=== PATIENT | male | born 1985 | race Caucasian/White ===

== ENCOUNTER 2020-05-31 08:36 | Emergency (ER) | payer OTHER, SELFPAY ==
[2020-05-31 08:45] VITALS: BP 164/87; PULSE 88; RESP 17; TEMP 37.2; O2SAT 94; BMI 30.7
--- NOTE | 2020-05-31 08:45 | ECG_ITS ---
Test Reason : SOB Blood Pressure : / mmHG Vent. Rate : 082 BPM Atrial Rate : 082 BPM P-R Int : 140 ms QRS Dur : 110 ms QT Int : 344 ms P-R-T Axes : 040 033 045 degrees QTc Int : 401 ms Normal sinus rhythm with sinus arrhythmia Incomplete right bundle branch block Borderline ECG When compared with ECG of 31-DEC-2007 05:34, No significant change was found Referred By: Veronica Sanders Electronically Signed By:EDMUND JAY MD
--- NOTE | 2020-05-31 08:45 | XR_ITS ---
EXAMINATION: XR CHEST CLINICAL INFORMATION: Fever, shortness of breath COMPARISON: Report chest radiograph 12/31/2007 TECHNIQUE: Portable upright AP view of the chest was obtained. FINDINGS: The lungs are clear. The vascularity is normal. There is no airspace consolidation or definite groundglass opacity. The costophrenic sulci are clear. The heart is normal in size. The hilar and mediastinal contours are normal. No visible acute bony abnormality. IMPRESSION: Unremarkable examination.
[2020-05-31 08:47] VITALS: PULSE 84
--- NOTE | 2020-05-31 08:47 | ED.CHESTPAIN ---
HPI - Chest Pain General Chief Complaint: Chest Pain Stated Complaint: SOB CHEST PAIN Time Seen by Provider: 05/31/20 08:39 Source: patient Mode of arrival: ambulatory Limitations: no limitations History of Present Illness HPI narrative: patient comes to the emergency room complaining of chest pain with coughing, subjective fever, chills, and diaphoresis. Patient states that all his symptoms started 2 days ago. Patient took ibuprofen last night. Patient states that this time he does not have significant shortness of breath, no chest pain. Patient concerned about the sweating episodes that he has had over last 48 hours. Patient denies known exposure to COVID-19. At home no one is sick except him Related Data Allergies Allergy/AdvReac Type Severity Reaction Status Date / Time No Known Allergies Allergy Unknown Unverified 04/26/20 16:05 [No Known Allergies*] Review of Systems Review of Systems: Constitutional : No Weight loss, complaining of fever and chills and episodes of sweating throughout the day for the last 48 hours, also complaining of fatigue and malaise ENT/Mouth : No Hearing loss, No Ear Pain, No Nasal Congestion, No Sinus Pain, No Hoarseness, No sore throat, No Rhinorrhea, No Swallowing Difficulty Eyes: No Eye Pain, No Swelling, No Redness, No Foreign Body, No Discharge, No Vision Changes Cardiovascular : mild chest pain with coughing, feels short of breath, No Orthopnea, No Edema, No Palpitations Respiratory : reports dry cough, No Wheezing, No Smoke Exposure Gastrointestinal : No Nausea, No Vomiting, reports couple of episodes of Diarrhea, No Constipation, No abdominal Pain, No Hematochezia, No Melena Genitourinary : no irregular bleeding, No Dysuria, No Urinary Frequency, No Hematuria, No Urinary Incontinence, No Urgency, No Flank Pain, No Urinary Flow Changes, No Hesitancy Musculoskeletal : No joint pain, No Myalgias, No Joint Swelling Skin : No Skin Lesions, No rash Neuro : No Weakness, No Numbness, No Paresthesias, No Loss of Consciousness, No Dizziness, No Headache Psych : No Anxiety/Panic, No Depression, No SI/HI/AH/VH, No Social Issues, Heme/Lymph: No Bruising, No Bleeding,No Lymphadenopathy Endocrine : No Polyuria, No Polydipsia, No Temperature Intolerance Yes all other systems are reviewed and are negative [facility] Social History Social History Alcohol intake: never Smoking Status: Never smoker Use of substances other than those prescribed or required for medical reasons: No Advance Directives: No Advance Directives Information Provided: No Physical Exam Vital Signs: Vital Signs: Vital Signs Temp Pulse Resp BP Pulse Ox 05/31/20 12:00 76 16 96 05/31/20 10:00 74 05/31/20 08:45 99 F 88 17 164/87 H 94 Body Mass Index 30.7 Appearance: Alert. Oriented X3. No acute distress, diaphoretic Eyes: Pupils equal, round and reactive to light. ENT: Pharynx normal. Neck: Normal inspection. Neck supple. No lymph nodes noted. No crepitus CVS: Normal heart rate and rhythm. Pulses normal. Normal S1 and S2 Respiratory: No respiratory distress. Breath sounds normal. No Wheezing. No rales Abdomen: Soft and nontender. No rigidity. No distention. good BS x4 Skin: Skin warm and dry. Normal skin color. Normal skin turgor. Extremities: No lower extremity edema. No lower extremity edema. No Lacerations. No Rash Neuro: Oriented X 3. No motor deficit. No sensory deficit. Moving all extermities. No slurred speech. Course Course Course Narrative: patient is asymptomatic. I discussed the labs with the patient, patient now accepts that she used cocaine. I discussed with the patient That all his symptoms can be related to cocaine use, and urged him to stop using drugs. MDM - Chest Pain Lab Data Result diagrams: 05/31/20 08:57 05/31/20 08:57 Labs: Lab Results 05/31/20 05/31/20 05/31/20 Range/Units 08:56 08:56 08:57 WBC 10.5 (4.8-10.8) X10*3/uL RBC 5.36 (4.60-5.80) X10*6/uL Hgb 16.5 (14.0-18.0) g/dl Hct 47.1 (42-52) % MCV 87.9 (80-98) fL MCH 30.8 (27.0-33.0) pg MCHC 35.0 (31.0-36.0) g/dl RDW 11.7 (11.0-16.0) % Plt Count 214 (160-400) X10*3/uL MPV 11.3 (9.4-12.4) fL Immature Gran % (Auto) 0.2 (0.0-0.4) % Neut % (Auto) 70.6 (45-73) % Lymph % (Auto) 13.6 L (20-40) % [place] % (Auto) 10.6 (2-11) % Eos % (Auto) 4.2 H (0-4) % Baso % (Auto) 0.8 (0-2) % Lymph # (Auto) 1.4 (1.2-4.9) X10*3/uL [place] # (Auto) 1.1 (0.1-1.2) X10*3/uL Eos # (Auto) 0.4 (0.0-0.4) X10*3/uL Baso # (Auto) 0.1 (0.0-0.2) X10*3/uL Abs Immat Gran (auto) 0.02 (0.00-0.03) X10*3/uL Absolute Neuts (auto) 7.4 (2.0-8.3) X10*3/uL Absolute Nucleated RBC 0.000 (0.0-0.012) X10*3/uL Nucleated RBC % (auto) 0.0 (0.0-0.2) /100WBC D-Dimer NG/ML Sodium (135-145) mmol/L Potassium (3.3-5.1) mmol/l Chloride (96-108) mmol/L Carbon Dioxide (22-29) mmol/L Anion Gap (12-20) BUN (9-16) mg/dL Creatinine (0.5-1.4) mg/dL Estim Creat Clear Calc Estimated GFR Random Glucose (60-115) mg/dL Calcium (8.4-10.2) mg/dL Troponin I High Sens < 3.5 (<3.5-35.0) ng/L Urine Color Urine Appearance Urine pH (5.0-8.0) Ur Specific [place] (1.005-1.025) Urine Protein (NEG-TRACE) MG/DL Urine Glucose (UA) (NEG) MG/DL Urine Ketones (NEG) MG/DL Urine Blood (NEG) Urine Nitrite (NEG) Ur Leukocyte Esterase (NEG) Urine Opiates Screen (Not Detect) Ur Barbiturates Screen (Not Detect) Ur Phencyclidine Scrn (Not Detect) Ur Amphetamines Screen (Not Detect) U Benzodiazepines Scrn (Not Detect) Urine Cocaine Screen (Not Detect) U Marijuana (THC) Screen (Not Detect) Coronavirus (PCR) NEGATIVE (Negative) 05/31/20 05/31/20 05/31/20 Range/Units 08:57 10:01 11:45 WBC (4.8-10.8) X10*3/uL RBC (4.60-5.80) X10*6/uL Hgb (14.0-18.0) g/dl Hct (42-52) % MCV (80-98) fL MCH (27.0-33.0) pg MCHC (31.0-36.0) g/dl RDW (11.0-16.0) % Plt Count (160-400) X10*3/uL MPV (9.4-12.4) fL Immature Gran % (Auto) (0.0-0.4) % Neut % (Auto) (45-73) % Lymph % (Auto) (20-40) % [place] % (Auto) (2-11) % Eos % (Auto) (0-4) % Baso % (Auto) (0-2) % Lymph # (Auto) (1.2-4.9) X10*3/uL [place] # (Auto) (0.1-1.2) X10*3/uL Eos # (Auto) (0.0-0.4) X10*3/uL Baso # (Auto) (0.0-0.2) X10*3/uL Abs Immat Gran (auto) (0.00-0.03) X10*3/uL Absolute Neuts (auto) (2.0-8.3) X10*3/uL Absolute Nucleated RBC (0.0-0.012) X10*3/uL Nucleated RBC % (auto) (0.0-0.2) /100WBC D-Dimer 223 NG/ML Sodium 140 (135-145) mmol/L Potassium 4.1 (3.3-5.1) mmol/l Chloride 101 (96-108) mmol/L Carbon Dioxide 28 (22-29) mmol/L Anion Gap 15 (12-20) BUN 9 (9-16) mg/dL Creatinine 1.10 (0.5-1.4) mg/dL Estim Creat Clear Calc 113.8 Estimated GFR > 60 Random Glucose 109 (60-115) mg/dL Calcium 9.5 (8.4-10.2) mg/dL Troponin I High Sens (<3.5-35.0) ng/L Urine Color YELLOW Urine Appearance CLEAR Urine pH 6.0 (5.0-8.0) Ur Specific [place] 1.020 (1.005-1.025) Urine Protein TRACE (NEG-TRACE) MG/DL Urine Glucose (UA) NEG (NEG) MG/DL Urine Ketones NEG (NEG) MG/DL Urine Blood NEG (NEG) Urine Nitrite NEG (NEG) Ur Leukocyte Esterase TRACE H (NEG) Urine Opiates Screen (Not Detect) Ur Barbiturates Screen (Not Detect) Ur Phencyclidine Scrn (Not Detect) Ur Amphetamines Screen (Not Detect) U Benzodiazepines Scrn (Not Detect) Urine Cocaine Screen (Not Detect) U Marijuana (THC) Screen (Not Detect) Coronavirus (PCR) (Negative) 05/31/20 Range/Units 11:45 WBC (4.8-10.8) X10*3/uL RBC (4.60-5.80) X10*6/uL Hgb (14.0-18.0) g/dl Hct (42-52) % MCV (80-98) fL MCH (27.0-33.0) pg MCHC (31.0-36.0) g/dl RDW (11.0-16.0) % Plt Count (160-400) X10*3/uL MPV (9.4-12.4) fL Immature Gran % (Auto) (0.0-0.4) % Neut % (Auto) (45-73) % Lymph % (Auto) (20-40) % [place] % (Auto) (2-11) % Eos % (Auto) (0-4) % Baso % (Auto) (0-2) % Lymph # (Auto) (1.2-4.9) X10*3/uL [place] # (Auto) (0.1-1.2) X10*3/uL Eos # (Auto) (0.0-0.4) X10*3/uL Baso # (Auto) (0.0-0.2) X10*3/uL Abs Immat Gran (auto) (0.00-0.03) X10*3/uL Absolute Neuts (auto) (2.0-8.3) X10*3/uL Absolute Nucleated RBC (0.0-0.012) X10*3/uL Nucleated RBC % (auto) (0.0-0.2) /100WBC D-Dimer NG/ML Sodium (135-145) mmol/L Potassium (3.3-5.1) mmol/l Chloride (96-108) mmol/L Carbon Dioxide (22-29) mmol/L Anion Gap (12-20) BUN (9-16) mg/dL Creatinine (0.5-1.4) mg/dL Estim Creat Clear Calc Estimated GFR Random Glucose (60-115) mg/dL Calcium (8.4-10.2) mg/dL Troponin I High Sens (<3.5-35.0) ng/L Urine Color Urine Appearance Urine pH (5.0-8.0) Ur Specific [place] (1.005-1.025) Urine Protein (NEG-TRACE) MG/DL Urine Glucose (UA) (NEG) MG/DL Urine Ketones (NEG) MG/DL Urine Blood (NEG) Urine Nitrite (NEG) Ur Leukocyte Esterase (NEG) Urine Opiates Screen Not Detected (Not Detect) Ur Barbiturates Screen Not Detected (Not Detect) Ur Phencyclidine Scrn Not Detected (Not Detect) Ur Amphetamines Screen Not Detected (Not Detect) U Benzodiazepines Scrn Not Detected (Not Detect) Urine Cocaine Screen POSITIVE H (Not Detect) U Marijuana (THC) Screen POSITIVE H (Not Detect) Coronavirus (PCR) (Negative) ABG Data Attestation: I personally reviewed and interpreted this ABG as follows: ( sinus rhythm heart rate 82, QTC 401, no ST segment depressions or elevations, incomplete right bundle branch block) Discharge Plan Discharge Clinical Impression: Chest pain Qualifiers: Chest pain type: unspecified Qualified Code(s): R07.9 - Chest pain, unspecified Patient Disposition: Home, Self-Care Instructions: Chest Pain (ED), Abuse of Alcohol (ED)
[2020-05-31 09:02] LABS: MANUAL DIFF FLAG NO
[2020-05-31 09:04] LABS: Basophils Absolute Auto 0.1 X10*3/uL (0.0-0.2); Basophils Percent Auto 0.8 % (0-2); Eosinophils Absolute Auto 0.4 X10*3/uL (0.0-0.4); Eosinophils Percent Auto 4.2 % (0-4); Hematocrit 47.1 % (42-52); Hemoglobin 16.5 g/dl (14.0-18.0); Imm Gran Abs Auto 0.02 X10*3/uL (0.00-0.03); Imm Gran Pct Auto 0.2 % (0.0-0.4); Lymphocytes Absolute Auto 1.4 X10*3/uL (1.2-4.9); Lymphocytes Percent Auto 13.6 % (20-40); Mean Corpuscular Hemoglobin 30.8 pg (27.0-33.0); Mean Corpuscular Volume 87.9 fL (80-98); Mean Platelet Volume 11.3 fL (9.4-12.4); Monocytes Absolute Auto 1.1 X10*3/uL (0.1-1.2); Monocytes Percent Auto 10.6 % (2-11); Neutrophils Absolute Auto 7.4 X10*3/uL (2.0-8.3); Neutrophils Percent Auto 70.6 % (45-73); Platelet Count 214 X10*3/uL (160-400); Red Blood Count 5.36 X10*6/uL (4.60-5.80); Red Cell Distribution Width 11.7 % (11.0-16.0); White Blood Count 10.5 X10*3/uL (4.8-10.8)
[2020-05-31] MEDS: Acetaminophen 325 MG TABLET 650 MG PO (09:08)
[2020-05-31] MEDS: 0.9 % Sodium Chloride 1,000 ML 999 ML IV (09:08)
[2020-05-31 09:29] LABS: Troponin-I High Sensitivity < 3.5 ng/L (<3.5-35.0)
[2020-05-31 09:33] LABS: Anion Gap 15 (12-20); Blood Urea Nitrogen 9 mg/dL (9-16); Calcium 9.5 mg/dL (8.4-10.2); Carbon Dioxide 28 mmol/L (22-29); Chloride 101 mmol/L (96-108); Creatinine Clr Calc Pharmacy 113.8; Estimated Glomerular Filt Rate > 60; Glucose Random 109 mg/dL (60-115); Potassium 4.1 mmol/l (3.3-5.1); Sodium 140 mmol/L (135-145)
[2020-05-31 09:57] LABS: SARS COV2 PCR INHOUSE NEGATIVE (Negative)
[2020-05-31 10:00] VITALS: PULSE 74; PULSE 75
[2020-05-31 10:15] LABS: D Dimer 223 NG/ML
[2020-05-31 12:00] VITALS: PULSE 76; RESP 16; O2SAT 96
[2020-05-31 12:42] LABS: Amphetamine Screen Urine Not Detected (Not Detect); Barbiturates, Urine Not Detected (Not Detect); Benzodiazepines Screen Urine Not Detected (Not Detect); Cannabinoid Screen Urine POSITIVE (Not Detect); Cocaine Screen Urine POSITIVE (Not Detect); Opiate Screen Urine Not Detected (Not Detect); Phencyclidine Screen Urine Not Detected (Not Detect)
[2020-05-31 12:54] LABS: Glucose Urine UA NEG (NEG); Leukocyte Esterase Urine TRACE (NEG); Nitrite Urine NEG (NEG); Urine Blood NEG (NEG); Urine Ketones NEG (NEG); Urine Protein TRACE MG/DL (NEG-TRACE)
[2020-05-31 12:58] LABS: Appearance Urine CLEAR; Color Urine YELLOW
[2020-05-31 13:18] VITALS: BP 129/77; PULSE 84; RESP 19; TEMP 36.8; O2SAT 95
[2020-05-31 13:19] LABS: RBC Urine 0 /HPF (0); Squamous Epithelial Cell Urine TRACE /LPF
== END 2020-05-31 13:31 | disposition home or self-care (01) ==
PROVIDERS: Emergency Provider Emergency Medicine
DX: R07.9 Chest pain, unspecified (principal); Z20.828 Contact with and (suspected) exposure to other viral communicable diseases
CPT/HCPCS: 36415; 71045; 80048; 80307; 81001; 81003; 84484; 85025; 85379; 87086; 87635; 93005; 96360; 99284

== ENCOUNTER 2020-07-12 13:43 | Outpatient (REF) | payer SELFPAY | END 2020-07-12 13:44 | disposition home or self-care (01) | LOC: HO.LAB 13:43 | PROVIDERS: Visit Provider Internal Medicine | DX: Z20.828 Contact with and (suspected) exposure to other viral communicable diseases (principal) | CPT/HCPCS: C9803; U0003 ==

== ENCOUNTER 2021-03-20 07:46 | Emergency (ER) | payer SELFPAY ==
[2021-03-20 07:48] VITALS: BP 136/76; PULSE 72; RESP 16; TEMP 36.1; O2SAT 96; BMI 32.1
--- NOTE | 2021-03-20 08:10 | PC.NURSE ---
midlevel at bedside to use dermabond to repair laceration
--- NOTE | 2021-03-20 08:18 | ED.WOUNDLAC ---
HPI - Wound/Laceration General Chief Complaint: Wound/Laceration Stated Complaint: finger lac Time Seen by Provider: 03/20/21 08:02 Source: patient Mode of arrival: ambulatory Limitations: no limitations History of Present Illness HPI narrative: 36 y/o male presenting with a laceration to the tip of his right middle finger. He reports this morning he cut it on an air conditioner. He is able to fully bend and straighten his finger. There is no active bleeding. He is not up to date on his tetanus shot. He denies weakness, numbness, tingling. Onset (ago): minute(s) Extremity Location: right: hand (middle finger) Place: home Patient tetanus UTD: No Context: accidental Associated symptoms: pain Treatments prior to arrival: cold therapy and bandage Related Data Allergies Allergy/AdvReac Type Severity Reaction Status Date / Time No Known Allergies Allergy Unknown Unverified 04/26/20 16:05 [No Known Allergies*] Review of Systems Review of Systems: Constitutional: No Fever, No Chills Gastrointestinal: No Nausea, No Vomiting Musculoskeletal: + joint pain, No Myalgias Skin: + Skin Lesions, No rash Neuro: No Weakness, No Numbness Heme/Lymph: No Bruising E PMFSH Past Medical History Attestation statement: The following information was validated with the patient. Social History Social History Alcohol intake: current Alcohol intake frequency: a few times a week Patient Tobacco Use Status: Never used Tobacco Use of substances other than those prescribed or required for medical reasons: No Advance Directives: Yes Advance Directives Information Provided: Yes Advance Directives on File: No Physical Exam Vital Signs: Vital Signs: Last Vital Signs Temp 96.9 F 03/20/21 07:48 Pulse 72 03/20/21 07:48 Resp 16 03/20/21 07:48 BP 136/76 03/20/21 07:48 Pulse Ox 96 03/20/21 07:48 Body Mass Index 32.1 Appearance: Alert. Oriented X3. No acute distress. HEENT: normal inspection CVS: Normal heart rate and rhythm. Pulses normal. Respiratory: No respiratory distress. Skin: Skin warm and dry. Normal skin color. Normal skin turgor. No rashes. Extremities: right hand with normal inspection. distal right middle finger with 0.5 superficial, liner laceration to the pulp of the fingertip. no active bleeding. no point tenderness, full ROM of all fingers. cap refill <3 sec. 2+ radial pulse. normal senior field engineer strength Neuro: Oriented X 3. No motor deficit. No sensory deficit. Course Course Course Narrative: 36 y/o male presenting with a small superficial lac to right middle finger. Amenable to Dermabond. Tdap given. Stable for d/c home. Wound care discussed. Procedures Laceration Laceration 1: Site: hand Side (If applicable): right Size (cm): 0.5 Description: linear and clean Depth: simple, single layer Pre-repair: irrigated extensively Skin layer closed with: other (Dermabond) Discharge Plan Discharge Clinical Impression: Laceration Patient Disposition: Home, Self-Care Instructions: Finger Laceration (ED) Additional Instructions: Your wound was closed/protected with a skin glue. This will peel off/fall off on its own within a week, do no peel it off. Do not get your finger wet for 24 hours. Keep clean and covered. Take Motrin and/or Tylenol as needed for discomfort. Follow up with your doctor as needed. Stand Alone Forms: Work/School Release
[2021-03-20] MEDS: Diphth,Pertus(ACell),Tet Adult 0.5 ML SYRINGE IM (08:19)
== END 2021-03-20 08:39 | disposition home or self-care (01) ==
PROVIDERS: Emergency Provider Emergency Medicine Emergency Medical Services
DX: S61.212A Laceration without foreign body of right middle finger without damage to nail, initial encounter (principal); W26.8XXA Contact with other sharp object(s), not elsewhere classified, initial encounter; Y93.9 Activity, unspecified; Y92.9 Unspecified place or not applicable; Y99.9 Unspecified external cause status
CPT/HCPCS: 12001; 90471; 90715; 99284

== ENCOUNTER 2023-01-22 09:04 | Emergency (ER) | payer BC, SELFPAY ==
--- NOTE | ~2023-01-22 | XR_ITS ---
EXAMINATION: XR LUMBOSACRAL SPINE CLINICAL INFORMATION: Pain COMPARISON: None available. TECHNIQUE: Three views of the lumbosacral spine. FINDINGS: No fracture or subluxation. Vertebral body height and alignment maintained. Disc spaces are maintained. The sacroiliac joints are symmetric. The sacrum is intact. Normal bowel gas pattern. XR/XR lumbar spine 2-3V IMPRESSION: Normal lumbar spine radiographs.
[2023-01-22 09:40] VITALS: BP 131/89; PULSE 71; RESP 18; TEMP 36.3; O2SAT 98; BMI 30.8
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
== END 2023-01-22 12:09 | disposition home or self-care (01) ==
PROVIDERS: Emergency Provider Emergency Medicine
DX: M54.50 Low back pain, unspecified (principal)
CPT/HCPCS: 72100; 99282; 99283

== ENCOUNTER 2023-01-27 09:06 | Emergency (ER) | payer BC, SELFPAY ==
[2023-01-27 09:29] VITALS: BP 137/88; PULSE 71; RESP 16; TEMP 36.9; O2SAT 99; BMI 30.8
--- NOTE | 2023-01-27 10:29 | ED_ITS ---
HPI - General Adult General Chief complaint: Extremity Injury, Lower Stated complaint: R leg pain and numbness Time Seen by Provider: 01/27/23 09:41 Source: patient and RN notes reviewed Mode of arrival: ambulatory Limitations: no limitations History of Present Illness HPI narrative: This is a 37-year-old male presenting to the emergency department for evaluation of right leg numbness and tingling since 2:00 a.m. this morning. Patient was seen at [facility] last Thursday for a back injury, where he lifted a heavy object and immediately felt pain in his back. He states that he has been taking muscle relaxers and naproxen for symptoms without any relief. Patient reports that during the night he felt numbness and tingling down his entire right leg. These symptoms have been constant, worsening with weight- bearing and movement. He denies any urinary or bowel incontinence. No saddle anesthesia. No fevers or chills. No abdominal pain. No other complaints or concerns at this time. MD complaint: Back pain, numbness/tingling right leg Onset (ago): hour(s) Location: lower extremity Radiation: back Severity: moderate Quality: aching Pain Consistency: constant Relieving factors: immobilization Exacerbating factors: movement Associated symptoms: denies other symptoms Treatments prior to arrival: none Related Data Previous Rx's Medication Instructions Recorded methocarbamol 750 mg tablet 750 mg PO TID PRN muscle spasm #20 01/22/23 tabs naproxen 500 mg tablet 500 mg PO BID PRN pain #20 tabs 01/22/23 ibuprofen 600 mg tablet 600 mg PO Q6H PRN pain #30 tabs 01/27/23 prednisone 50 mg tablet 50 mg PO DAILY 5 days #5 tabs 01/27/23 Allergies Allergy/AdvReac Type Severity Reaction Status Date / Time No Known Allergies Allergy Unknown Verified 01/27/23 09:33 [No Known Allergies*] Review of Systems Review of Systems: Constitutional: No Weight loss, No Fever, No Chills, No Night Sweats, No Fatigue, No Malaise ENT/Mouth: No Hearing loss, No Ear Pain, No Nasal Congestion, No Sinus Pain, No Hoarseness, No sore throat, No Rhinorrhea, No Swallowing Difficulty Eyes: No Eye Pain, No Swelling, No Redness, No Foreign Body, No Discharge, No Vision Changes Cardiovascular: No Chest Pain, No SOB, No Dyspnea on Exertion, No Orthopnea, No Edema, No Palpitations Respiratory: No Cough, No Sputum, No Wheezing, No Smoke Exposure, No Dyspnea Gastrointestinal: No Nausea, No Vomiting, No Diarrhea, No Constipation, No Abdominal pain, No Hematochezia, No Melena Genitourinary: No irregular bleeding, No Dysuria, No Urinary Frequency, No Hematuria, No Urinary Incontinence/retention, No Urgency, No Flank Pain, No Urinary Flow Changes, No Hesitancy Musculoskeletal: No joint pain, No Myalgias, No Joint Swelling Skin: No Skin Lesions, No rash Neuro: No Weakness, +Numbness, + Paresthesias, No Loss of Consciousness, No Dizziness, No Headache Psych: No Anxiety/Panic, No Depression, No SI/HI/AH/VH, No Social Issues, Heme/Lymph: No Bruising, No Bleeding,No Lymphadenopathy Endocrine: No Polyuria, No Polydipsia, No Temperature Intolerance [facility] Social History Social History Alcohol intake: current Alcohol intake frequency: a few times a week Patient Tobacco Use Status: Never used Tobacco Advance Directives: No Advance Directives Information Provided: Yes Physical Exam ED Vital Signs: Vital Signs - 24 hr 01/27/23 09:29 Temperature 98.5 F Pulse Rate 71 Respiratory Rate 16 Blood Pressure 137/88 Pulse Oximetry 99 Oxygen Delivery Method Room Air BMI result Body Mass Index 30.8 General: Awake, alert, and oriented X3. No acute distress. HEENT: Normal inspection CVS: Normal heart rate and rhythm. Pulses normal. Respiratory: No respiratory distress Skin: Warm, dry, no rashes noted to exposed skin. Normal skin color. Normal skin turgor. Extremities: Normal to inspection. Patient has tenderness to palpation over right lumbar paraspinous muscles extending over into the right SI joint. Positive straight leg raise on the right. Able to flex and extend the right knee. Distal sensation circulation intact. DP pulses 2+. No calf swelling or pain. No palpable cords. Negative Homans sign Neuro: Oriented X 3. No motor deficit. No sensory deficit. Medications Administered Discontinued Medications Generic Name Dose Route Start Last Admin Trade Name Freq PRN Reason Stop Dose Admin Ketorolac Tromethamine 30 mg 01/27/23 10:25 06/20/23 10:41 Ketorolac Tromethamine 30 Mg/Ml Vial IM 01/27/23 10:26 30 mg ONCE ONE Administration Prednisone 50 mg 01/27/23 10:25 01/27/23 10:41 Prednisone 10 Mg Tablet PO 01/27/23 10:26 Not Given ONCE ONE Medical Decision Making Medical Decision Making MDM Narrative: 37-year-old male presenting to the emergency department for evaluation back pain and right leg numbness and tingling. Patient was seen last week for back pain but reports continued back pain and now having right leg numbness and tingling. Vital signs within normal limits. Patient had x-rays performed last week without any bony abnormalities. Patient does not need repeat imaging at this time. Patient given Toradol 30 mg IM. Symptoms consistent with sciatica. Will treat with course of prednisone, and NSAIDs. Advised to follow-up with primary care physician as he may need further treatment and evaluation of back pain future. Given return precautions if any new or worsening symptoms occur. Patient understands and agrees with plan. Differential Diagnosis Differential Diagnoses: The differential diagnosis associated with the presentation includes Sciatica, lumbar strain, lumbar sprain, lumbar spasm Discharge Plan Discharge Clinical Impression: Sciatica, Back pain Patient Disposition: Home, Self-Care Instructions: Acute Low Back Pain (ED), Lower Back Exercises (ED) Additional Instructions: Take prescribed medication as directed. Take prednisone 50 mg for the next 5 days. Drink plenty of fluids get plenty of rest. Take prescribed ibuprofen as directed, stop taking naproxen and Aleve while taking this medication. Gentle stretching, massage can also help. Ice or heat, whichever feels better. Follow-up with primary care physician, call today to make an appointment. You may need to follow up with a physical therapist for further treatment. If any new or worsening symptoms occur including but not limited to urinary or bowel incontinence, weakness, please return to the emergency department for further evaluation. Prescriptions: New ibuprofen 600 mg tablet 600 mg PO Q6H PRN (Reason: pain) Qty: 30 0RF prednisone 50 mg tablet 50 mg PO DAILY 5 Days Qty: 5 0RF No Action methocarbamol 750 mg tablet 750 mg PO TID PRN (Reason: muscle spasm) Qty: 20 0RF naproxen 500 mg tablet 500 mg PO BID PRN (Reason: pain) Qty: 20 0RF Referrals: [facility] [Physician] - Stand Alone Forms: Work/School Release Interventions: ED Discharge Assessment Last Done: 01/27/23 10:49 Discharge Date/Time: 01/27/23 10:51
[2023-01-27] MEDS: Ketorolac Tromethamine 30 MG/ML VIAL IM (10:41)
== END 2023-01-27 10:51 | disposition home or self-care (01) ==
PROVIDERS: Emergency Provider Emergency Medicine
DX: M54.41 Lumbago with sciatica, right side (principal); Z79.899 Other long term (current) drug therapy
CPT/HCPCS: 96372; 99283; 99284; J1885

== ENCOUNTER 2023-12-14 09:01 | Emergency (ER) | payer BC, SELFPAY ==
--- NOTE | ~2023-12-14 | XR_ITS ---
EXAMINATION: XR HAND, LEFT CLINICAL INFORMATION: Laceration COMPARISON: None available. TECHNIQUE: PA, lateral, and oblique views of the left hand. FINDINGS: No information provided regarding the site of tissue laceration. Also, images are not labeled with regards to the specific site of injury. Bones have normal alignment throughout the hand and wrist. Joint spaces are maintained. No acute fracture or subluxation. A punctate density is seen at the skin anterior to the level of the third metacarpal head. XR/XR hand LT 2V IMPRESSION: No acute osseous injury in the left hand or wrist. A punctate density is seen in the skin anterior to region of third metacarpal head.
[2023-12-14 09:13] VITALS: BP 145/96; PULSE 89; RESP 16; TEMP 36.8; O2SAT 94; BMI 27.4
--- NOTE | 2023-12-14 10:07 | ED_ITS ---
HPI - Wound/Laceration General Chief Complaint: Wound/Laceration Stated Complaint: l hand laceration Time Seen by Provider: 12/14/23 09:28 Source: patient Mode of arrival: ambulatory Limitations: no limitations History of Present Illness HPI narrative: Patient is a 38-year-old left-hand dominant male presenting to the emergency department with complaint of laceration to left palm and left middle finger. States that he jumped over a fence and cut his hand around 7 or 8pm last night. He reports that he put a bandage on and went to bed. States that when he woke in the morning the lacerations were more severe than he initially thought. Denies any weakness, numbness, tingling. Unknown last Tdap. Onset (ago): hour(s) Extremity Location: left: hand Place: outdoors Patient tetanus UTD: No Context: accidental Associated symptoms: pain Treatments prior to arrival: bandage Related Data Previous Rx's ?Medication ?Instructions ?Recorded methocarbamol 750 mg tablet 750 mg PO TID PRN muscle spasm #20 01/22/23 tabs naproxen 500 mg tablet 500 mg PO BID PRN pain #20 tabs 01/22/23 ibuprofen 600 mg tablet 600 mg PO Q6H PRN pain #30 tabs 01/27/23 prednisone 50 mg tablet 50 mg PO DAILY 5 days #5 tabs 01/27/23 amoxicillin 875 mg-potassium 1 tab PO BID #14 tabs 12/14/23 clavulanate 125 mg tablet Allergies Allergy/AdvReac Type Severity Reaction Status Date / Time No Known Allergies Allergy Unknown Verified 12/14/23 09:15 [No Known Allergies*] Review of Systems 2 Review of Systems: As per HPI. Yes all other systems are reviewed and are negative Constitutional: Constitutional: Reports as per HPI [facility] Social History Social History Alcohol intake: current Alcohol intake frequency: a few times a week Patient Tobacco Use Status: Never used Tobacco Advance Directives: No Advance Directives Information Provided: No Do you have a plan to hurt others: No Plan Physical Exam 2 Vital Signs: Vital Signs: Last Vital Signs Temp 98.3 F 12/14/23 09:13 Pulse 89 12/14/23 09:13 Resp 16 12/14/23 09:13 BP 145/96 H 12/14/23 09:13 Pulse Ox 94 12/14/23 09:13 O2 Del Method Room Air 12/14/23 09:13 BMI result Body Mass Index 27.4 Vital signs have been reviewed and appear to be correct. Blood pressure elevated. Heart rate normal. Respiratory rate normal. Temperature normal. Oxygen saturation normal. Const: General: cooperative, healthy appearing and no acute distress O rientation/consciousness: oriented to person, oriented to place, oriented to time and patient oriented x3 Limitations: no limitations HEENT: Head: Yes normocephalic and Yes atraumatic Ears: external ears normal General nose exam: Normal external nose present Face and sinus: Yes face symmetric Mouth: oropharynx normal and moist mucous membranes Throat: Yes uvula midline Eyes: Pupils: Equal, round and reactive pupils present Neck: Neck: Yes normal visual inspection and Yes supple Resp: Effort & Inspection: normal respiratory effort and able to speak in complete sentences Auscultation: clear to auscultation bilaterally Cardio: Rate: regular rate Rhythm: regular rhythm Heart sounds: S1 normal heart sound present and S2 normal heart sound present Skin: General skin exam: elasticity normal and turgor normal Neuro: General: oriented to person, oriented to place, oriented to time, patient oriented x3, moves all extremities, no focal motor deficits and CN's II- XI intact bilaterally Cranial nerves: Yes Equal, round and reactive pupils present Cognition (Neuro): normal cognition Extrem: Other: General: Yes full ROM, Yes no pedal edema and Yes no calf tenderness L eft upper extremity: hand Details: normal capillary refill, neuromotor exam normal, neurosensory exam normal, tendon exam normal, normal ROM of fingers and laceration palm palmar aspect mid Details: flap, contaminated, with motor nerve function intact and with sensation intact, 3rd digit palmar aspect mid Details: flap (over PIP joint), contaminated, with motor nerve function intact and with sensation intact Psych: Mental Status: mental status grossly normal Affect: normal affect Thought process: Normal thought process present Medical Decision Making Medical Decision Making MDM Narrative: Patient is a 38-year-old left-hand dominant male presenting to the emergency department with complaint of laceration to left palm and left middle finger. On exam patient is awake, A+Ox3, BP mildly elevated, VS otherwise WNL, afebrile, normal neurological exam without focal deficits, physical exam findings as above. Given reported symptoms and physical exam findings, initial differential includes laceration of finger, laceration of palm, at risk for tetanus, possible tendon injury. X-ray notable for no acute fracture, punctate density noted anerior to 3rd metacarpal head. My interpretation is in agreement with the radiologist's interpretation. Lacerations repaired as per procedure notes. Small pebble removed from palmar laceration during irrigation/cleansing. Patient placed on course of Augmentin for 7 days as wound was grossly contaminated. Tdap updated. No evidence of tendon injury on physical exam. Case discussed with Dr. Ames who will see patient within the next few days, patient advised to call office to schedule an appointment. Return precautions discussed at bedside. Patient instructed to keep dressing in place for the next 24 hours, then change dressing daily and assess for signs of infection and return if these occur. Patient verbalized understanding of and agreement with plan. Differential Diagnosis Differential Diagnoses: The differential diagnosis associated with the presentation includes As per MDM. Independent Interpretation I performed an independent interpretation of an: Plain X-Ray Interpretation: X-ray notable for no acute fracture, punctate density noted anerior to 3rd metacarpal head. Radiology Impression Discussion of test interpretation with radiology: I have reviewed the radiologist's reading. Radiologist Impression: XR/XR hand LT 2V IMPRESSION: No acute osseous injury in the left hand or wrist. A punctate density is seen in the skin anterior to region of third metacarpal head. External Record Review External record reviewed: Inpatient record, Office record and Outpatient record Prescription Management I considered prescription management with: Antibiotic Procedures Laceration Laceration 1: Site: hand (3rd finger palmar aspect) Side (If applicable): left Size (cm): 2 Description: flap and contaminated Depth: simple, single layer Local Anesthetic: lidocaine 1% Amount of anesthesia used (mL): 5 Pre-repair: wound explored, irrigated extensively and deep structures intact Skin layer closed with: other (prolene) Size (cm): 5-0 Number of sutures: 9 Technique: simple, interrupted Laceration 2: Site: hand (palm) Side (If applicable): left Size (cm): 8 Description: flap Depth: simple, single layer Local Anesthetic: lidocaine 1% Amount of anesthesia used (mL): 10 Pre-repair: wound explored, irrigated extensively and deep structures intact Skin layer closed with: other (prolene) Size (cm): 5-0 Number of sutures: 16 Technique: simple, interrupted Discharge Plan Discharge Clinical Impression: Laceration of hand, left Qualifiers: Encounter type: initial encounter Foreign body presence: without foreign body Q ualified Code(s): S61.412A - Laceration without foreign body of left hand, initial encounter Laceration of finger of left hand Qualifiers: Encounter type: initial encounter Finger: middle finger Damage to nail status: without damage Foreign body presence: without foreign body Qualified Code(s): S 61.213A - Laceration without foreign body of left middle finger without damage to nail, initial encounter Patient Disposition: Home, Self-Care Instructions: Care For Your Stitches (DC), Laceration (DC), Finger Laceration (ED), Stitches Removal (ED) Additional Instructions: You have been evaluated in the emergency department today for a laceration to your left 3rd finger and hand . Your lacerations were repaired in the emergency department with 25 sutures (9 on finger, 16 on palm). You are being treated with antibiotics prevent infection. Please complete the full course as prescribed. You are being referred to the hand surgeon, Dr. Ames, please call their office tomorrow to schedule follow-up appointment. Please keep the areas surrounding the lacerations clean and dry and keep dressing in place for the next 24 hours. After that please change the dressing and assess the wound daily. Keep the area out of direct sunlight for the next 6 months to help prevent scarring. You should have the sutures removed in 10-14 days. If you develop fever, redness, swelling at the site of your laceration, or thick yellow drainage please come back to the ER for a wound check. Prescriptions: New amoxicillin-pot clavulanate 875-125 mg tablet 1 tab PO BID Qty: 14 0RF No Action methocarbamol 750 mg tablet 750 mg PO TID PRN (Reason: muscle spasm) Qty: 20 0RF naproxen 500 mg tablet 500 mg PO BID PRN (Reason: pain) Qty: 20 0RF ibuprofen 600 mg tablet 600 mg PO Q6H PRN (Reason: pain) Qty: 30 0RF prednisone 50 mg tablet 50 mg PO DAILY 5 Days Qty: 5 0RF Referrals: Zee Ames MD [Physician] - Stand Alone Forms: Work/School Release Interventions: ED Discharge Assessment Last Done: 12/14/23 12:25 Print Language: Hungarian
[2023-12-14] MEDS: Lidocaine HCl 1 % MPF 5 ML VIAL 10 ML INFILTRATI (12:18)
[2023-12-14] MEDS: Lidocaine HCl 1 % MPF 5 ML VIAL INFILTRATI (12:18)
[2023-12-14] MEDS: Diphth,Pertus(ACell),Tet Adult 0.5 ML SYRINGE IM (12:18)
[2023-12-14] MEDS: Bacitracin Oint 0.9 GM PACKET 1 APPL TOPICAL (12:19)
[2023-12-14 12:25] VITALS: BP 140/108; PULSE 83; RESP 16; TEMP 36.8; O2SAT 95
== END 2023-12-14 12:26 | disposition home or self-care (01) ==
PROVIDERS: Emergency Provider Emergency Medicine
DX: S61.412A Laceration without foreign body of left hand, initial encounter (principal); S61.213A Laceration without foreign body of left middle finger without damage to nail, initial encounter; W26.8XXA Contact with other sharp object(s), not elsewhere classified, initial encounter; Y93.39 Activity, other involving climbing, rappelling and jumping off; Y92.9 Unspecified place or not applicable; Y99.9 Unspecified external cause status; Z23 Encounter for immunization
CPT/HCPCS: 12004; 73120; 90471; 90715; 99282; 99284

== ENCOUNTER 2023-12-15 09:41 | Outpatient (AMB) | payer BC, SELFPAY ==
--- NOTE | 2023-12-15 09:42 | MHC.OFFVIS ---
Vital Signs 12/15/23 09:47 Height 5 ft 11 in Weight 220 lb BMI 30.7 Handedness Left Intake Visit Reasons: N/P ED follow up left hand laceration 12/13/23 Intake Note: Vadim is a 38 year old left hand dominate male who presents today with his as a new patient for his left hand laceration s/p DOI 12/13/23. He was seen in [facility] on 12/14/23 and was referred to Orthopedics for further evaluation. Patient reports he tried to jump over the fence in his yard and cut his left hand. He expresses he is having burning sensation on the volar aspect of his left hand. Patient received a tetanus shot 12/14/23 in ED and was prescribed amoxicillin which he states he will start today. He is unable to make a closed fist. Denies any weakness, numbness, tingling. Accompanied by: Spouse Allergies latex Allergy (Mild, Verified 12/15/23 09:53) Rash HPI HPI N/P ED follow up left hand laceration 12/13/23: Details: Vadim is a 38 year old right hand dominant man, here with his , for a left palm & middle finger laceration, DOI: 12/13/23. He says he was hopping his fence that night, and covered his hand with a bandage. He was seen in the ED on 12/14/23 where his lacerations were sutured and he was referred here. He presents today saying he has a burning sensation in the volar aspect of his hand. He was given amoxicillin in the ED, which he will begin today. He says he did not pick them up from his pharmacy yesterday. He says he has some mild numbness in his middle & ring fingers. He denies any weakness. He works in construction [facility] Social History (Updated 12/15/23 @ 09:54 by Mago Jauregui) Alcohol intake: current Alcohol intake frequency: a few times a week Patient Tobacco Use Status: Never used Tobacco Current occupational status: employed Current occupation: left hand dominate/ constructions Review of Systems Const All systems reviewed & are unremarkable except as noted in HPI and below Physical Exam Vital Signs: BMI result Body Mass Index 30.7 Const General: cooperative, healthy appearing and no acute distress Orientation/consciousness: patient oriented x3 HEENT Head: Yes normocephalic and Yes atraumatic Eyes EOM: EOMs intact bilaterally Resp Effort & Inspection: normal respiratory effort and able to speak in complete sentences Cardio Jugular venous distension: no JVD Skin General skin exam: turgor normal Rashes: no rashes Neuro General: patient oriented x3 Extrem Other: Evaluation of Left Upper Extremity: The patient is alert, oriented, and in no acute distress Neuro: Median, Ulnar, Radial nerves motor and sensory intact and sensation is normal to the tips of all digits, except for numbness in the ulnar digital nerve distribution of the middle finger, & radial digital nerve distribution of the ring finger. He has a large distally based flap in the mid aspect of his palm extending roughly from the A1 farhad areas of the middle and ring fingers proximally to about 2 cm proximal to the proximal mid palmar crease. He also has another jagged laceration over the volar aspect of the middle finger proximal and middle phalanxes.. All wounds are sutured closed. Minimal serosanguineous drainage. He is got some maceration of the proximal half of the flap in his mid palm. The vascularity of this aspect of the flap is difficult to ascertain at this time. Cap refill is brisk to the tips of all digits. Again on the neuro exam he has dense numbness in the distribution of the 3rd common digital nerve at the 3rd webspace, likely indicating an injury to the common digital nerve in this area. Normal sensation to the ulnar aspect of the small finger and the radial aspect of the middle finger and all other digits. Intact FDP and FDS tendon function found on examination of all digits including the middle finger today. He does have some swelling, and this is certainly a significant injury to his hand. We did work on some range of motion today as I do not want his fingers to get terribly stiff. He was able to bring his fingertips to about 3 cm from his palm and then back into full extension. He is going to work on gentle range of motion.. Radiographs: 3 views of the left hand from 12/14/23 were reviewed by me today in clinic. They show no fractures, dislocations, or foreign bodies. Psych Appearance: grossly normal Affect: normal affect Attitude: cooperative Assessment & Plan Assessment & Plan (1) Laceration of left palm: Code(s): S61.412A - Laceration without foreign body of left hand, initial encounter Category: Medical (2) Laceration of left middle finger: Code(s): S61.213A - Laceration without foreign body of left middle finger without damage to nail, initial encounter Category: Medical (3) Numbness of left hand: Code(s): R20.0 - Anesthesia of skin Category: Medical Plan Assessment & Plan: 1. Left palm laceration Significant distally based flap, after getting his hand caught on a metal fence 2. Left middle finger laceration DOI: 12/12/53 Intact tendon function 3. Possible laceration of the common digital nerve to the 3rd webspace Numbness In the ulnar aspect of the middle finger, & radial aspect of the ring finger. DOI: 12/13/23 I educated him & his about these conditions I discussed operative and non-operative treatment options I believe we can manage this conservatively. He does understand that he will likely not regain the sensation distal to the 3rd webspace, but that with sensation to the opposite side of both digits he should still have very good hand function. At this point the wound looks clean, however there is some maceration in the mid-palmar aspect of the wound I explained the signs and symptoms of infection, if the patient develops any new or worsening erythema, drainage, pain, or warmth they should contact the clinic or attend the ED. He has not yet started his antibiotics. I explained to him about the importance of starting and continuing his antibiotics and about the risks of infection. He said he will moss picker his prescription for Augmentin on the way home and make sure he gets 2 doses today and continue his antibiotics. I educated him on proper wound care, and he will perform daily dressing changes. 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 He will follow up early next week for a wound check, this can be done with a PA Scribed for Zee Ames MD by [employer] medical underwriter, on 12/15/23 at 10:10 AM, EST. Medications: Discontinued methocarbamol Discontinued Reason: Patient no longer taking 750 mg PO TID PRN 20 tabs 0RF muscle spasm naproxen Discontinued Reason: Patient no longer taking 500 mg PO BID PRN 20 tabs 0RF pain prednisone Discontinued Reason: Patient no longer taking 50 mg PO DAILY 5 days 5 tabs 0RF Coding Level of Care Code New Pt Level 4 (65074) Diagnoses Laceration of left palm S61.412A Laceration of left middle finger S61.213A Numbness of left hand R20.0
[2023-12-15 09:47] VITALS: BMI 30.7
== END 2023-12-15 10:24 | disposition home or self-care (01) ==
PROVIDERS: Visit Provider Orthopaedic Surgery
DX: S61.412A Laceration without foreign body of left hand, initial encounter (principal); S61.213A Laceration without foreign body of left middle finger without damage to nail, initial encounter; R20.0 Anesthesia of skin
CPT/HCPCS: 99204

== ENCOUNTER → 2023-12-15 09:41 | Outpatient (BNVA) | payer BC, SELFPAY | PROVIDERS: Visit Provider Orthopaedic Surgery ==

== ENCOUNTER 2023-12-25 08:44 | Outpatient (AMB) | payer BC, SELFPAY ==
[2023-12-25 08:50] VITALS: BMI 30.7
--- NOTE | 2023-12-25 08:50 | A.OFFVIS_ITS ---
Vital Signs 12/25/23 08:50 Height 5 ft 11 in Weight 220 lb BMI 30.7 Intake Visit Reasons: OV-left hand laceration 12/13/23 wound check Intake Note: Vadim is a 38 year old left hand dominant male who presents today for a follow up of left hand laceration, DOI 12/13/23. Patient reports he is having a burning sensation and has an bad smell. He states two days ago his dog head got its head stuck in his crate and he tried to pry it open forgetting he had an injury. He is concerned that he did some damage. Allergies latex Allergy (Mild, Verified 12/25/23 09:07) Rash HPI HPI OV-left hand laceration 12/13/23 wound check: Details: 38-year-old left hand dominant male who returns to the office today for a follow-up of left-hand laceration, 12/13/23. He reports his dog?s head got stuck in the crate about 2 days ago and he tried to pry it open forgetting he had an injury. He is concerned that he did some damage. He currently states he has a burning sensation and a foul smell from his lesion. [facility] Social History (Updated 12/15/23 @ 09:54 by Mago Jauregui) Alcohol intake: current Alcohol intake frequency: a few times a week Patient Tobacco Use Status: Never used Tobacco Current occupational status: employed Current occupation: left hand dominate/ constructions Review of Systems Const All systems reviewed & are unremarkable except as noted in HPI and below Physical Exam Vital Signs: BMI result Body Mass Index 30.7 Const General: cooperative, healthy appearing and no acute distress Orientation/consciousness: patient oriented x3 HEENT Head: Yes normocephalic and Yes atraumatic Eyes EOM: EOMs intact bilaterally Resp Effort & Inspection: normal respiratory effort and able to speak in complete sentences Cardio Jugular venous distension: no JVD Skin General skin exam: turgor normal Rashes: no rashes Neuro General: patient oriented x3 Extrem Other: He has a large distally based flap in the mid aspect of his palm - midway through the flap the sutures did open continued maceration of the proximal half of the flap in his mid palm. The vascularity of this aspect of the flap is difficult to ascertain at this time. Cap refill is brisk to the tips of all digits. Intact FDP and FDS tendon function found on examination of all digits including the middle finger today. Psych Appearance: grossly normal Affect: normal affect Attitude: cooperative Assessment & Plan Assessment & Plan (1) Laceration of left palm: Code(s): S61.412A - Laceration without foreign body of left hand, initial encounter Category: Medical (2) Laceration of left middle finger: Code(s): S61.213A - Laceration without foreign body of left middle finger without damage to nail, initial encounter Category: Medical (3) Numbness of left hand: Code(s): R20.0 - Anesthesia of skin Category: Medical Plan I did refill his antibiotics and he is going perform twice a day dressing changes with antibiotics ointment, gauze and dry dressing. He can wash the hand twice a day with warm soapy water and a cap full of peroxide. He does have an area over the palm that opened when he was getting the dog out of crate. We cannot re-suture this, it will have to heal on its own. He will avoid submerging his hand underwater or any activities that are strenuous. He will keep the area clean. I would like to see him back in 1 wk for a wound check with dr pittman. His sutures will remain intact till this time. Medications: Refilled amoxicillin-pot clavulanate 875-125 mg 1 tab PO BID 14 tabs 0RF Patient Instructions: Scribed for Jacob Nicholas PA-C, by Arik Palomino chief medical physicist, on 12/25/2023 at 9:00 AM EST.? I, Jacob Nicholas PA-C, have personally reviewed and agree with the information entered by the scribe. Coding Level of Care Code Est Pt Level 3 (65735) Diagnoses Laceration of left palm S61.412A Laceration of left middle finger S61.213A Numbness of left hand R20.0
== END 2023-12-25 09:56 | disposition home or self-care (01) ==
PROVIDERS: Visit Provider Physician Assistant
DX: S61.412A Laceration without foreign body of left hand, initial encounter (principal); S61.213A Laceration without foreign body of left middle finger without damage to nail, initial encounter; R20.0 Anesthesia of skin
CPT/HCPCS: 99213

== ENCOUNTER → 2023-12-25 08:44 | Outpatient (BNVA) | payer BC, SELFPAY | PROVIDERS: Visit Provider Physician Assistant ==

== ENCOUNTER 2023-12-29 14:43 | Outpatient (AMB) | payer BC, SELFPAY ==
[2023-12-29 14:51] VITALS: BMI 30.7
--- NOTE | 2023-12-29 14:51 | A.OFFVIS_ITS ---
Vital Signs 12/29/23 14:51 Height 5 ft 11 in Weight 220 lb BMI 30.7 Intake Visit Reasons: OV-left hand laceration 12/13/23 wound check Intake Note: Vadim is a 38 year old left hand dominant male who presents today for a follow up of left hand laceration, DOI 12/13/23. Last seen with Prabha for a wound check after his dog got its head stuck in his crate and he tried to pry it open forgetting he had an injury. Currently states intermittent pain and swelling in his thumb. He continues taking his antibiotics as prescribed and doing daily dressing changes. Allergies latex Allergy (Mild, Verified 12/29/23 14:52) Rash HPI HPI OV-left hand laceration 12/13/23 wound check: Details: Vadim is a 38 year old left hand dominant man, here with his , for follow- up S/P left palm & middle finger laceration, DOI: 12/13/23. He says he was hopping his fence that night, and covered his hand with a bandage. He was seen by MICHAEL Sorto on 12/25/23, he had to help remove his dog from its crate on 12/23/23 nd had concerns of burning pain, re-injury, and a foul smell from the wound. She extended his Augmentin and he was doing daily wound care & dressing change. He returns today saying he is doing well. He has some issues with pain and stiffness but this is improved from prior. He continues to take his Abx as instructed, and perform daily wound cleaning & dressing changes at home. He says he had a 2 day gap between his Abx courses, he just picked up his next 7-day course of Augmentin to begin today. He says he has some mild numbness in his middle & ring fingers. He denies any weakness. He works in construction [facility] Social History Alcohol intake: current Alcohol intake frequency: a few times a week Patient Tobacco Use Status: Never used Tobacco Current occupational status: employed Current occupation: left hand dominate/ constructions Physical Exam Vital Signs: BMI result Body Mass Index 30.7 Extrem Other: Evaluation of Left Upper Extremity: The patient is alert, oriented, and in no acute distress Half sutures removed today. He still has numbness in the distribution of the 3rd web space but feels like it might be slightly better along the ring finger. It looks like the tip of the triangular flap was nonviable, and he is now developing some granulation tissue in an area without primary skin coverage that measure perhaps 1 cm base of the triangle by 1.5 cm height of the triangle in the mid palm that represented this aspect of the triangular based flap. More distally in the base of the flap the skin appears to be pink and healing well. No purulence today. Mild odor. With encouragement I can get him to bring his fingertips to his palm in a closed fist and then back into extension. Good cap refill to all digits. Assessment & Plan Assessment & Plan (1) Laceration of left palm: Code(s): S61.412A - Laceration without foreign body of left hand, initial encounter Category: Medical (2) Laceration of left middle finger: Code(s): S61.213A - Laceration without foreign body of left middle finger without damage to nail, initial encounter Category: Medical (3) Numbness of left hand: Code(s): R20.0 - Anesthesia of skin Category: Medical Plan Assessment & Plan: 1. Left palm laceration Significant distally based flap, after getting his hand caught on a metal fence He went on to have some necrosis of the very distal aspect of the flap in the proximal aspect of the palm. It looks like he is starting to grow some good granulation tissue in the wound. He may end up needing a debridement of some of the fibrinous exudate if it does not clean up with daily wound care. 2. Left middle finger laceration DOI: 12/12/53 Intact tendon function 3. Possible laceration of the common digital nerve to the 3rd webspace Numbness In the ulnar aspect of the middle finger, & radial aspect of the ring finger. DOI: 12/13/23 I educated him & his about these conditions We thus far have been able to manage this conservatively. He does understand that he will likely not regain the sensation distal to the 3rd webspace, but that with sensation to the opposite side of both digits he should still have very good hand function. He will continue to take his Abx as instructed. Marisol gave him a new prescription for Augmentin last week. He had about a 2 day gap but picked up the prescription yesterday and started it yesterday. He will continue to perform daily wound care and dressing changes. He can go ahead and wash the wound now with soap and water in the shower. No immersion. I discussed activity modification, he will continue to work on ROM exercises at home. 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 We are going to keep him out of work easily for another 3 weeks. Scribed for Zee Ames MD by Barber Joe, medical genetics director, on 12/29/23 at 3:05 PM, EST. Coding Level of Care Code Est Pt Level 3 (24712) Diagnoses Laceration of left palm S61.412A Laceration of left middle finger S61.213A Numbness of left hand R20.0
== END 2023-12-29 15:54 | disposition home or self-care (01) ==
PROVIDERS: Visit Provider Orthopaedic Surgery
DX: S61.412A Laceration without foreign body of left hand, initial encounter (principal); S61.213A Laceration without foreign body of left middle finger without damage to nail, initial encounter; R20.0 Anesthesia of skin
CPT/HCPCS: 99214

== ENCOUNTER → 2023-12-29 14:43 | Outpatient (BNVA) | payer BC, SELFPAY | PROVIDERS: Visit Provider Orthopaedic Surgery ==

== ENCOUNTER 2024-01-11 12:51 | Outpatient (AMB) | payer BC, SELFPAY ==
--- NOTE | 2024-01-11 12:55 | A.OFFVIS_ITS ---
Vital Signs 01/11/24 13:00 Height 5 ft 11 in Weight 220 lb BMI 30.7 Intake Visit Reasons: O/V left hand laceration 12/13/23 wound check Intake Note: Vadim is a 38 year old left hand dominant male who presents today for a follow up of left hand laceration, DOI 12/13/23. Patient reports he is doing well, states soreness in his palm and finger. He continues dressing changes twice a day. Allergies latex Allergy (Mild, Verified 01/11/24 13:00) Rash HPI HPI O/V left hand laceration 12/13/23 wound check: Details: 38-year-old left hand dominant male who returns to the office today for a follow-up of left hand laceration, 12/13/23. He states he has soreness in his palm and finger however he is doing well otherwise. He continues to perform dressing changes twice a day. He is completed with his antibiotic regimen. He has no other concerns today. [facility] Social History Alcohol intake: current Alcohol intake frequency: a few times a week Patient Tobacco Use Status: Never used Tobacco Current occupational status: employed Current occupation: left hand dominate/ constructions Review of Systems Const All systems reviewed & are unremarkable except as noted in HPI and below Physical Exam Vital Signs: BMI result Body Mass Index 30.7 Extrem Other: Left hand: Wound is clean and slight macerated. Suture is intact. No drainage. He is able to make a full fist and fully extend all digits. Assessment & Plan Assessment & Plan (1) Laceration of left palm: Code(s): S61.412A - Laceration without foreign body of left hand, initial encounter Category: Medical (2) Laceration of left middle finger: Code(s): S61.213A - Laceration without foreign body of left middle finger without damage to nail, initial encounter Category: Medical (3) Numbness of left hand: Code(s): R20.0 - Anesthesia of skin Category: Medical Plan Sutures were removed today, steri strips applied. He will keep the area clean and dry. He will avoid submerging underwater and perform no lifting activities. I would like to see him back in 2 weeks for a wound check, sooner if needed. Patient Instructions: Scribed for Jacob Nicholas PA-C, by Arik Palomino, bilingual medical receptionist, on 01/11/2024 at 1:30 PM EST.? I, Jacob Nicholas PA-C, have personally reviewed and agree with the information entered by the scribe. Coding Level of Care Code Est Pt Level 3 (88856) Diagnoses Laceration of left palm S61.412A Laceration of left middle finger S61.213A Numbness of left hand R20.0
[2024-01-11 13:00] VITALS: BMI 30.7
== END 2024-01-11 13:39 | disposition home or self-care (01) ==
PROVIDERS: Visit Provider Physician Assistant
DX: S61.412A Laceration without foreign body of left hand, initial encounter (principal); S61.213A Laceration without foreign body of left middle finger without damage to nail, initial encounter; R20.0 Anesthesia of skin
CPT/HCPCS: 99213

== ENCOUNTER → 2024-01-11 12:51 | Outpatient (BNVA) | payer BC, SELFPAY | PROVIDERS: Visit Provider Physician Assistant ==

== ENCOUNTER 2024-01-27 13:17 | Outpatient (AMB) | payer BC, SELFPAY ==
[2024-01-27 13:29] VITALS: BMI 30.7
--- NOTE | 2024-01-27 13:29 | A.OFFVIS_ITS ---
Vital Signs 01/27/24 13:29 Height 5 ft 11 in Weight 220 lb BMI 30.7 Intake Visit Reasons: OV-wk f/u left hand wound Intake Note: Vadim a 38 year old male who presents today for a wound check s/p left hand laceration, DOI 12/13/23. Patient reports having soreness around his wound as well as numbness. Allergies latex Allergy (Mild, Verified 01/27/24 13:30) Rash HPI HPI OV-wk f/u left hand wound: Details: 38-year-old male who returns to the office today for a follow-up of left-hand laceration. He presents today for a wound check. He reports some soreness around his wound as well as numbness. He has on other concerns. [facility] Social History Alcohol intake: current Alcohol intake frequency: a few times a week Patient Tobacco Use Status: Never used Tobacco Current occupational status: employed Current occupation: left hand dominate/ constructions Review of Systems Const All systems reviewed & are unremarkable except as noted in HPI and below Physical Exam Vital Signs: BMI result Body Mass Index 30.7 Extrem Other: Left hand: Wound is well healed. He does have some fibrotic scar tissue along the hand which is mildly tender to palpation. He can flex and extend all of his digits. He does have decreased sensation along the laceration site. Assessment & Plan Assessment & Plan (1) Numbness of left hand: Code(s): R20.0 - Anesthesia of skin Category: Medical (2) Laceration of left middle finger: Code(s): S61.213A - Laceration without foreign body of left middle finger without damage to nail, initial encounter Category: Medical (3) Laceration of left palm: Code(s): S61.412A - Laceration without foreign body of left hand, initial encounter Category: Medical Plan A course of occupational therapy was ordered to work on ROM and pharmacovigilance safety expert strengthening. I also encouraged he performs scar massage along palm and work on desensitization techniques. If symptoms persist or worsen, patient will contact the office, otherwise as needed. Orders: Orders OT Evaluation and Treatment 01/27/24 R20.0 - Anesthesia of skin, S61.213A - Laceration without foreign body of left middle finger without damage to nail, initial encounter, S61.412A - Laceration without foreign body of left hand, initial encounter Patient Instructions: Scribed for Jacob Nicholas PA-C, by Arki Palomino medical device, on 01/27/2024 at 1:30 PM EST.? I, Jacob Nicholas PA-C, have personally reviewed and agree with the information entered by the scribe. Coding Level of Care Code Global (49810) Diagnoses Numbness of left hand R20.0 Laceration of left middle finger S61.213A Laceration of left palm S61.412A
== END 2024-01-27 13:41 | disposition home or self-care (01) ==
PROVIDERS: Visit Provider Physician Assistant
DX: R20.0 Anesthesia of skin (principal); S61.213A Laceration without foreign body of left middle finger without damage to nail, initial encounter; S61.412A Laceration without foreign body of left hand, initial encounter
CPT/HCPCS: 99213

== ENCOUNTER → 2024-01-27 13:17 | Outpatient (BNVA) | payer BC, SELFPAY | PROVIDERS: Visit Provider Physician Assistant ==